=== PATIENT | male | born 1940 | race Caucasian/White ===

== ENCOUNTER 2020-09-17 12:32 | Inpatient (IN) ==
[2020-09-17] MEDS ORDERED: ADENOSINE IV SOLN 3 MG/ML 2 ML VIAL IV ONE (13:08)
[2020-09-17] MEDS ORDERED: dilTIAZem HCl 5 MG/ML 5 ML VIAL IV ONE (13:14)
[2020-09-17] MEDS ORDERED: dilTIAZem HCl 5 MG/ML 5 ML VIAL IV STA (13:20)
[2020-09-17] MEDS ORDERED: STAT IV Infusion **Titration per Protocol STA (13:20)
[2020-09-17] MEDS ORDERED: SODIUM CHLORIDE 0.9% 500 ML IV STA (13:20)
[2020-09-17] MEDS ORDERED: ADENOSINE IV SOLN 3 MG/ML 2 ML VIAL IV STA (13:20)
[2020-09-17] MEDS ORDERED: ASPIRIN CHEW 324 MG PO STA (13:20)
--- NOTE | 2020-09-17 13:29 | Emergency Department Note ---
History of Present Illness General Chief complaint: Tachycardia Stated complaint: HEARTING BEATING TOO FAST,REF BY DOC Time Seen by Provider: 09/17/20 13:01 Source: patient History of Present Illness Provider complaint: Chest pain Onset (ago): week(s) 5 Location: chest Radiation: non-radiation Severity: moderate Pain Consistency: + intermittent Maximum Pain Intensity: 5 Quality: + other (Pressure/bloating) Relieved By: + none Exacerbated By: + other (Exertion) Associated symptoms: + chest pain, + cough (Mild) and + other; no diaphoresis, no fever/chills, no headaches, no nausea/vomiting and no shortness of breath This is an 79-year-old male who presents with chest discomfort for approximately 5 weeks. The patient was seen by his doctor today and sent here for further evaluation due to tachycardia. The patient states that he has intermittently had chest discomfort in the middle of his chest for the past 5 weeks which he de scribes as a pressure or bloating. He states it is associated with shortness of breath. He rates it a 5 out of 10 in severity. He denies any nausea vomiting or diaphoresis. His heart rate was high in his doctor's office so he was sent here for medication. He states that he has not felt his heart racing but when he takes his pulse he has noticed that it has been fast at times. He denies any fever, abdominal pain, vomiting, black or bloody stools, diarrhea, headaches or urinary symptoms. He denies any history of bleeding issues. He states he is on no medications and is not treated for any medical conditions. Home Medications Medication Instructions Recorded Confirmed Type No Known Home Medications 09/17/20 09/17/20 History Allergies Allergy/AdvReac Type Severity Reaction Status Date / Time No Known Drug Allergies Allergy nkda Unverified 09/17/20 14:42 Past Med/Surg History Medical History No significant past medical history Social History Smoking Status: Never smoker Hx Alcohol Use: No Hx Substance Use: No Preferred Language: Indonesian Communication Ability: Effective Substation Engineer Required: No Beliefs That Will Affect Care: Bahai and Cultural Cultural Beliefs: Matheus Current Living Situation: Family Feels Safe at Home: Yes Safety Concerns: Feels Safe At This Time Review of Systems See HPI for pertinent positives & negatives. and A total of 10 systems reviewed and were otherwise negative Physical Exam Vital Signs Vital Signs - 24 hr 09/17/20 12:49 09/17/20 12:56 09/17/20 13:01 Temperature 36.5 C Temperature Source Temporal Artery Scan Pulse Rate 154 H 153 H Pulse Rate from SpO2 Sensor Respiratory Rate 18 27 H Respiratory Effort / Characteristics Short of Breath Blood Pressure 114/74 Blood Pressure Mean 87 Blood Pressure Position Sitting Pulse Oximetry 96 Oxygen Delivery Method Room Air Room Air Sepsis Recent Fever Within 48 Hours No Sepsis New/Unexplained Change in Mental Status N/A Sepsis Action Taken by Nursing No Action Required 09/17/20 13:03 09/17/20 13:05 09/17/20 13:10 Temperature Temperature Source Pulse Rate 153 H 152 H 151 H Pulse Rate from SpO2 Sensor 153 H 152 H 151 H Respiratory Rate 36 H 21 25 H Respiratory Effort / Characteristics Blood Pressure 128/96 123/87 Blood Pressure Mean 106 99 Blood Pressure Position Pulse Oximetry 95 94 95 Oxygen Delivery Method Sepsis Recent Fever Within 48 Hours Sepsis New/Unexplained Change in Mental Status Sepsis Action Taken by Nursing 09/17/20 13:11 09/17/20 13:14 09/17/20 13:15 Temperature Temperature Source Pulse Rate 151 H 150 H 150 H Pulse Rate from SpO2 Sensor 150 H 150 H Respiratory Rate 24 21 29 H Respiratory Effort / Characteristics Blood Pressure 126/89 Blood Pressure Mean 101 Blood Pressure Position Pulse Oximetry 95 96 Oxygen Delivery Method Sepsis Recent Fever Within 48 Hours Sepsis New/Unexplained Change in Mental Status Sepsis Action Taken by Nursing 09/17/20 13:19 09/17/20 13:20 09/17/20 13:25 Temperature Temperature Source Pulse Rate 120 H 114 H 113 H Pulse Rate from SpO2 Sensor 122 H 113 H 114 H Respiratory Rate 28 H 30 H 27 H Respiratory Effort / Characteristics Blood Pressure 113/75 107/69 Blood Pressure Mean 87 81 Blood Pressure Position Pulse Oximetry 92 93 94 Oxygen Delivery Method Sepsis Recent Fever Within 48 Hours Sepsis New/Unexplained Change in Mental Status Sepsis Action Taken by Nursing 09/17/20 13:30 09/17/20 13:34 09/17/20 13:35 Temperature Temperature Source Pulse Rate 114 H 121 H 123 H Pulse Rate from SpO2 Sensor 116 H 110 H 119 H Respiratory Rate 24 22 16 Respiratory Effort / Characteristics Blood Pressure 110/82 Blood Pressure Mean 91 Blood Pressure Position Pulse Oximetry 94 96 95 Oxygen Delivery Method Sepsis Recent Fever Within 48 Hours Sepsis New/Unexplained Change in Mental Status Sepsis Action Taken by Nursing 09/17/20 13:40 09/17/20 13:41 09/17/20 13:45 Temperature Temperature Source Pulse Rate 103 H 114 H 108 H Pulse Rate from SpO2 Sensor 102 H 113 H 62 Respiratory Rate 22 28 H 22 Respiratory Effort / Characteristics Blood Pressure 155/80 H Blood Pressure Mean 105 Blood Pressure Position Pulse Oximetry 94 95 96 Oxygen Delivery Method Sepsis Recent Fever Within 48 Hours Sepsis New/Unexplained Change in Mental Status Sepsis Action Taken by Nursing 09/17/20 13:50 09/17/20 13:51 09/17/20 13:54 Temperature Temperature Source Pulse Rate 102 H 109 H 102 H Pulse Rate from SpO2 Sensor 85 55 L Respiratory Rate 18 27 H 24 Respiratory Effort / Characteristics Blood Pressure 162/81 H 141/81 H Blood Pressure Mean 108 101 Blood Pressure Position Pulse Oximetry 96 97 Oxygen Delivery Method Sepsis Recent Fever Within 48 Hours Sepsis New/Unexplained Change in Mental Status Sepsis Action Taken by Nursing 09/17/20 13:55 09/17/20 13:56 09/17/20 14:00 Temperature Temperature Source Pulse Rate 103 H 103 H 115 H Pulse Rate from SpO2 Sensor 54 L 52 L 72 Respiratory Rate 21 22 23 Respiratory Effort / Characteristics Blood Pressure 141/76 H 137/81 Blood Pressure Mean 97 99 Blood Pressure Position Pulse Oximetry 96 96 97 Oxygen Delivery Method Sepsis Recent Fever Within 48 Hours Sepsis New/Unexplained Change in Mental Status Sepsis Action Taken by Nursing 09/17/20 14:05 09/17/20 14:06 09/17/20 14:10 Temperature Temperature Source Pulse Rate 115 H 114 H 115 H Pulse Rate from SpO2 Sensor 84 65 109 H Respiratory Rate 22 21 19 Respiratory Effort / Characteristics Blood Pressure 136/82 Blood Pressure Mean 100 Blood Pressure Position Pulse Oximetry 96 96 93 Oxygen Delivery Method Sepsis Recent Fever Within 48 Hours Sepsis New/Unexplained Change in Mental Status Sepsis Action Taken by Nursing 09/17/20 14:15 09/17/20 14:16 09/17/20 14:20 Temperature Temperature Source Pulse Rate 115 H 123 H 115 H Pulse Rate from SpO2 Sensor 47 L 104 H 110 H Respiratory Rate 21 23 26 H Respiratory Effort / Characteristics Blood Pressure 152/97 H Blood Pressure Mean 115 Blood Pressure Position Pulse Oximetry 97 96 93 Oxygen Delivery Method Sepsis Recent Fever Within 48 Hours Sepsis New/Unexplained Change in Mental Status Sepsis Action Taken by Nursing 09/17/20 14:25 09/17/20 14:26 09/17/20 14:30 Temperature Temperature Source Pulse Rate 102 H 115 H 103 H Pulse Rate from SpO2 Sensor 59 L 77 67 Respiratory Rate 27 H 25 H 24 Respiratory Effort / Characteristics Blood Pressure 132/79 138/78 Blood Pressure Mean 96 98 Blood Pressure Position Pulse Oximetry 96 95 96 Oxygen Delivery Method Sepsis Recent Fever Within 48 Hours Sepsis New/Unexplained Change in Mental Status Sepsis Action Taken by Nursing 09/17/20 14:31 09/17/20 14:35 09/17/20 14:36 Temperature Temperature Source Pulse Rate 108 H 107 H 108 H Pulse Rate from SpO2 Sensor 62 52 L 61 Respiratory Rate 21 31 H 22 Respiratory Effort / Characteristics Blood Pressure 134/77 Blood Pressure Mean 96 Blood Pressure Position Pulse Oximetry 96 95 97 Oxygen Delivery Method Sepsis Recent Fever Within 48 Hours Sepsis New/Unexplained Change in Mental Status Sepsis Action Taken by Nursing 09/17/20 14:40 09/17/20 14:41 09/17/20 14:45 Temperature Temperature Source Pulse Rate 102 H 106 H 102 H Pulse Rate from SpO2 Sensor 55 L 55 L 51 L Respiratory Rate 23 25 H 26 H Respiratory Effort / Characteristics Blood Pressure 138/77 138/82 Blood Pressure Mean 97 100 Blood Pressure Position Pulse Oximetry 96 97 96 Oxygen Delivery Method Sepsis Recent Fever Within 48 Hours Sepsis New/Unexplained Change in Mental Status Sepsis Action Taken by Nursing 09/17/20 14:46 09/17/20 14:50 09/17/20 14:51 Temperature Temperature Source Pulse Rate 102 H 102 H 102 H Pulse Rate from SpO2 Sensor 51 L 52 L 51 L Respiratory Rate 24 22 22 Respiratory Effort / Characteristics Blood Pressure 142/81 H Blood Pressure Mean 101 Blood Pressure Position Pulse Oximetry 97 98 97 Oxygen Delivery Method Sepsis Recent Fever Within 48 Hours Sepsis New/Unexplained Change in Mental Status Sepsis Action Taken by Nursing 09/17/20 14:55 09/17/20 14:56 09/17/20 15:00 Temperature Temperature Source Pulse Rate 102 H 102 H 102 H Pulse Rate from SpO2 Sensor 52 L 51 L 51 L Respiratory Rate 25 H 20 16 Respiratory Effort / Characteristics Blood Pressure 146/83 H 144/83 H Blood Pressure Mean 104 103 Blood Pressure Position Pulse Oximetry 96 96 98 Oxygen Delivery Method Sepsis Recent Fever Within 48 Hours Sepsis New/Unexplained Change in Mental Status Sepsis Action Taken by Nursing 09/17/20 15:01 09/17/20 15:05 09/17/20 15:06 Temperature Temperature Source Pulse Rate 85 77 93 H Pulse Rate from SpO2 Sensor 68 75 84 Respiratory Rate 22 21 26 H Respiratory Effort / Characteristics Blood Pressure 146/85 H Blood Pressure Mean 105 Blood Pressure Position Pulse Oximetry 97 97 98 Oxygen Delivery Method Sepsis Recent Fever Within 48 Hours Sepsis New/Unexplained Change in Mental Status Sepsis Action Taken by Nursing 09/17/20 15:11 09/17/20 15:15 09/17/20 15:16 Temperature Temperature Source Pulse Rate 113 H 77 88 Pulse Rate from SpO2 Sensor 91 H 79 89 Respiratory Rate 20 24 21 Respiratory Effort / Characteristics Blood Pressure 143/88 H 132/88 Blood Pressure Mean 106 102 Blood Pressure Position Pulse Oximetry 96 96 97 Oxygen Delivery Method Sepsis Recent Fever Within 48 Hours Sepsis New/Unexplained Change in Mental Status Sepsis Action Taken by Nursing 09/17/20 15:20 09/17/20 15:25 09/17/20 15:30 Temperature Temperature Source Pulse Rate 84 101 H 97 H Pulse Rate from SpO2 Sensor 79 104 H 90 Respiratory Rate 22 19 22 Respiratory Effort / Characteristics Blood Pressure 118/80 147/78 H 119/84 Blood Pressure Mean 92 101 95 Blood Pressure Position Pulse Oximetry 98 95 96 Oxygen Delivery Method Sepsis Recent Fever Within 48 Hours Sepsis New/Unexplained Change in Mental Status Sepsis Action Taken by Nursing 09/17/20 15:31 09/17/20 15:35 09/17/20 15:40 Temperature Temperature Source Pulse Rate 102 H 80 84 Pulse Rate from SpO2 Sensor 99 H Respiratory Rate 24 24 21 Respiratory Effort / Characteristics Blood Pressure 123/83 120/86 Blood Pressure Mean 96 97 Blood Pressure Position Pulse Oximetry 94 Oxygen Delivery Method Sepsis Recent Fever Within 48 Hours Sepsis New/Unexplained Change in Mental Status Sepsis Action Taken by Nursing 09/17/20 15:45 09/17/20 15:46 09/17/20 15:50 Temperature Temperature Source Pulse Rate 92 H 77 83 Pulse Rate from SpO2 Sensor 88 Respiratory Rate 24 20 19 Respiratory Effort / Characteristics Blood Pressure 126/85 112/75 Blood Pressure Mean 98 87 Blood Pressure Position Pulse Oximetry 96 Oxygen Delivery Method Sepsis Recent Fever Within 48 Hours Sepsis New/Unexplained Change in Mental Status Sepsis Action Taken by Nursing 09/17/20 15:51 09/17/20 15:55 09/17/20 16:00 Temperature Temperature Source Pulse Rate 77 76 83 Pulse Rate from SpO2 Sensor 78 76 78 Respiratory Rate 24 22 21 Respiratory Effort / Characteristics Blood Pressure 112/78 123/85 Blood Pressure Mean 89 97 Blood Pressure Position Pulse Oximetry 98 97 95 Oxygen Delivery Method Sepsis Recent Fever Within 48 Hours Sepsis New/Unexplained Change in Mental Status Sepsis Action Taken by Nursing 09/17/20 16:01 Temperature Temperature Source Pulse Rate 80 Pulse Rate from SpO2 Sensor 78 Respiratory Rate 20 Respiratory Effort / Characteristics Blood Pressure Blood Pressure Mean Blood Pressure Position Pulse Oximetry 97 Oxygen Delivery Method Sepsis Recent Fever Within 48 Hours Sepsis New/Unexplained Change in Mental Status Sepsis Action Taken by Nursing Constitutional: Vital signs reviewed. Eyes: Pupils are equal round reactive to light. Conjunctiva are noninjected. ENT: Pharynx is clear without erythema or exudate. Mucous membranes are moist. Neck supple without meningeal signs. Respiratory: Clear to auscultation bilaterally. Breath sounds are equal bilaterally. Cardiovascular: Tachycardic. Heart rate 150. GI: Soft, nondistended and nontender. Bowel sounds are present. Musculoskeletal: No peripheral edema. No lower extremity tenderness. Integumentary: No cyanosis. or jaundice. Neurological: The patient is awake and alert. No focal deficits. Psychiatric: Normal affect. Not anxious appearing. Course Administered Medications Diltiazem HCl 125 mg/ Dextrose 125 mls @ 10 mls/hr IV .[id number] [facility]; Protocol Stop: 10/17/20 13:29 Last Titration: 09/17/20 14:30 Dose: 10 mg/hr, 10 mls/hr Documented by: [id number] Cosigned by: [id number] Admin: 09/17/20 13:55 Dose: 5 mg/hr, 5 mls/hr Documented by: [id number] Cosigned by: [id number] Discontinued Medications Adenosine (Adenosine Iv Soln 3 Mg/Ml 2 Ml Vial) Confirm Administered Dose 12 mg IV .STK-MED ONE Stop: 09/17/20 13:09 Last Admin: 09/17/20 13:12 Dose: 6 mg Documented by: [id number] Adenosine (Adenosine Iv Soln 3 Mg/Ml 2 Ml Vial) 6 mg IV NOW STA Stop: 09/17/20 13:21 Last Admin: 09/17/20 13:27 Dose: Not Given Documented by: [id number] Aspirin (Aspirin Chew 324 Mg) 324 mg PO NOW STA Stop: 09/17/20 13:21 Last Admin: 09/17/20 13:43 Dose: 324 mg Documented by: [id number] Diltiazem HCl (Diltiazem Hcl 5 Mg/Ml 5 Ml Vial) Confirm Administered Dose 25 mg IV .STK-MED ONE Stop: 09/17/20 13:15 Last Increment: 09/17/20 13:16 Dose: 10 mg Documented by: [id number] Cosigned by: [id number] Diltiazem HCl (Diltiazem Hcl 5 Mg/Ml 5 Ml Vial) 5 mg IV NOW STA Stop: 09/17/20 13:21 Last Admin: 09/17/20 13:44 Dose: Not Given Documented by: [id number] Sodium Chloride (Nss) 500 mls @ 999 mls/hr IV .Q31M STA Stop: 09/17/20 13:50 Last Infusion: 09/17/20 14:07 Dose: 0 mls/hr Documented by: [id number] Admin: 09/17/20 13:27 Dose: 999 mls/hr Documented by: [id number] Miscellaneous (Stat Iv Infusion Titration Per Protocol) 1 ea N/A NOW STA Stop: 09/17/20 13:21 Last Admin: 09/17/20 13:28 Dose: 1 ea Documented by: [id number] Critical Care Time Critical Care Time: Yes Total Critical Care Time: 40 I have personally spent approximately 40 minutes of critical care time in the direct management of this patient. This includes bedside care, interpretation of diagnostic studies, and testing, discussion with consultants, patient, and family members, and other required patient management activities. These minutes are in excess of all separately billable procedures. Medical Decision Making Differential Diagnosis Supraventricular tachycardia, atrial fibrillation, metabolic derangement, elect rolyte abnormality, unstable angina Medical Records Attestation: I reviewed the patient's medical records. I did perform a limited focused review of portions of the patient's old chart on the electronic medical record. The patient has had no recent pertinent visits to this hospital. Home Medications Current Medication List: was personally reviewed by me Laboratory Data Attestation: I reviewed the patient's lab results. Result diagrams: 09/17/20 13:03 09/17/20 13:03 Lab Results 06/09/21 06/09/21 06/09/21 Range/Units 13:03 13:03 13:54 WBC 7.24 (4.8-10.8) K/uL RBC 4.55 L (4.7-6.1) M/uL Hgb 13.9 L (14.0-18.0) g/dL Hct 41.7 L (42-52) % MCV 91.6 (80-100) fL MCH 30.5 (25-34) pg MCHC 33.3 (32-36) g/dL RDW Std Deviation 49.6 H (36.4-46.3) fL RDW Coeff of Gelacio 14.6 H (11.5-14.5) % Plt Count 223 (130-400) K/uL MPV 10.6 H (7.4-10.4) fL Immature Gran % (Auto) 0.1 % Neut % (Auto) 70.9 % Lymph % (Auto) 18.0 % [place] % (Auto) 8.8 % Eos % (Auto) 2.1 % Baso % (Auto) 0.1 % Neut # (Auto) 5.13 (1.4-6.5) K/uL Lymph # (Auto) 1.30 (1.2-3.4) K/uL [place] # (Auto) 0.64 H (0.11-0.59) K/uL Eos # (Auto) 0.15 (0-0.5) K/uL Baso # (Auto) 0.01 (0-0.2) K/uL Immature Gran # (Auto) 0.01 (0.00-0.02) K/uL Sodium 142 (136-145) mmol/L Potassium 3.8 (3.5-5.1) mmol/L Chloride 110 H (98-107) mmol/L Carbon Dioxide 26 (21-32) mmol/L Anion Gap 6.0 (3-11) BUN 24 H (7-18) mg/dl Creatinine 1.09 (0.6-1.4) mg/dl Est Cr Clr Drug Dosing 55.8 ml/min Est GFR ( Amer) 73.9 ml/min Est GFR (Non-Af Amer) 63.8 ml/min BUN/Creatinine Ratio 22.0 H (10-20) Glucose 142 H (70-99) mg/dl Calcium 8.5 (8.5-10.1) mg/dl Magnesium 2.5 H (1.8-2.4) mg/dl Total Bilirubin 0.7 (0.2-1) mg/dl AST 24 (15-37) U/L ALT 42 (12-78) U/L Alkaline Phosphatase 53 (45-117) U/L Troponin I 0.063 H* (0-0.045) ng/ml Total Protein 6.7 (6.4-8.2) gm/dl Albumin 3.2 L (3.4-5.0) gm/dl Globulin 3.5 (2.5-4.0) gm/dl Albumin/Globulin Ratio 0.9 (0.9-2) TSH 2.090 (0.300-4.500) uIu/ml COVID-19 Eval Order Covid19 at [facility] SARS-CoV-2 (PCR) (Negative) 09/17/20 Range/Units 13:54 WBC (4.8-10.8) K/uL RBC (4.7-6.1) M/uL Hgb (14.0-18.0) g/dL Hct (42-52) % MCV (80-100) fL MCH (25-34) pg MCHC (32-36) g/dL RDW Std Deviation (36.4-46.3) fL RDW Coeff of Gelacio (11.5-14.5) % Plt Count (130-400) K/uL MPV (7.4-10.4) fL Immature Gran % (Auto) % Neut % (Auto) % Lymph % (Auto) % [place] % (Auto) % Eos % (Auto) % Baso % (Auto) % Neut # (Auto) (1.4-6.5) K/uL Lymph # (Auto) (1.2-3.4) K/uL [place] # (Auto) (0.11-0.59) K/uL Eos # (Auto) (0-0.5) K/uL Baso # (Auto) (0-0.2) K/uL Immature Gran # (Auto) (0.00-0.02) K/uL Sodium (136-145) mmol/L Potassium (3.5-5.1) mmol/L Chloride (98-107) mmol/L Carbon Dioxide (21-32) mmol/L Anion Gap (3-11) BUN (7-18) mg/dl Creatinine (0.6-1.4) mg/dl Est Cr Clr Drug Dosing ml/min Est GFR ( Amer) ml/min Est GFR (Non-Af Amer) ml/min BUN/Creatinine Ratio (10-20) Glucose (70-99) mg/dl Calcium (8.5-10.1) mg/dl Magnesium (1.8-2.4) mg/dl Total Bilirubin (0.2-1) mg/dl AST (15-37) U/L ALT (12-78) U/L Alkaline Phosphatase (45-117) U/L Troponin I (0-0.045) ng/ml Total Protein (6.4-8.2) gm/dl Albumin (3.4-5.0) gm/dl Globulin (2.5-4.0) gm/dl Albumin/Globulin Ratio (0.9-2) TSH (0.300-4.500) uIu/ml COVID-19 Eval Order SARS-CoV-2 (PCR) NEGATIVE (Negative) Imaging Data Radiologist's Impression: Chest X-Ray 09/17/20 13:21 XR chest 1V portable HISTORY: 79 years-old Male cp acute atypical chest pain COMPARISON: None TECHNIQUE: Portable AP view of the chest FINDINGS: Cardiac silhouette is enlarged. Small pleural effusions with bibasilar opacities, left greater than right. Pulmonary vascular congestion with interstitial coarsening. No pneumothorax. Bones appear grossly intact with degenerative changes of the shoulders and spine. IMPRESSION: 1. Cardiomegaly with pulmonary edema. 2. Small pleural effusions with left greater than right bibasilar opacities suggestive of atelectasis. Pneumonia considered less likely. ACT 112: Negative or not required by law. The above report was generated using voice recognition software. It may contain grammatical, syntax or spelling errors. Electronically signed by: Davion Tierney M.D. 09/17/2020 2:25 PM ECG Data Attestation: I personally reviewed and interpreted this ECG as follows: Indication: + chest pain, + SOB/dyspnea and + tachycardia Rate (beats per minute): 152 Rhythm: + SVT ECG [place]: + Left axis deviation ECG ST segments: + Nonspecific ST abnormalities ECG Findings: no PVCs MDM Narrative I did evaluate the patient as noted above. The patient has had intermittent chest pain and elevated pulse for the past 5 weeks. He was sent here from his doctor's office because his pulse was elevated. He is currently having chest pressure and shortness of breath. IV access was established. I did place an order for continuous cardiac monitoring. The monitor showed SVT with a rate of 150. I did order and personally review the patient's 12-lead EKG as described above. He has SVT. There is left axis deviation and nonspecific ST changes. I initially attempted vagal maneuvers and carotid massage without any effect. After discussion with the patient and his I did recommend chemical treatment. The crash cart was brought into the room. Pacer pads were placed on the patient. I did treat him with adenosine 6 mg IV. His heart rate came down briefly and clear flutter waves were visible. I then treated the patient with Cardizem 10 mg IV and is heart rate came down to about 120. I did place him on a drip of Cardizem. He was given a bolus of 500 cc normal saline. I did order and personally reviewed the images of the patient's chest x-ray as described above. He has cardiomegaly. I did order and review the patient's blood work as noted in the electronic medical record. His white count is 7.4. Hemoglobin is 13.9. Platelet count is 223. Electrolytes are unremarkable. Troponin is slightly elevated. I did reassess the patient multiple times. He is on a cont inuous Cardizem drip. His heart rate is in the 70s now. He has no chest pain. He will be hospitalized for further care and evaluation. I did discuss case with the hospitalist and comp field case manager. The hospitalist requested I hold off on anticoagulation until he sees the patient. Impression & Plan Atrial fibrillation with rapid ventricular response, Troponin level elevated, New onset atrial fibrillation, Chest pain Discharge Plan Visit Data Chief Complaint: Tachycardia Stated Complaint: HEARTING BEATING TOO FAST,REF BY DOC ED Provider: Mark Andrews Discharge Problem: Atrial fibrillation with rapid ventricular response, Troponin level elevated, New onset atrial fibrillation, Chest pain Patient Disposition: Admitted As Inpatient Discharge Instructions Interventions: ED Discharge Assessment Last Done: 09/17/20 17:37
[2020-09-17 13:42] LABS: Basophils # (auto) 0.01 K/uL (0-0.2); Basophils % (auto) 0.1 %; Eosinophils # (auto) 0.15 K/uL (0-0.5); Eosinophils % (auto) 2.1 %; Hematocrit (blood only) 41.7 % (42-52); Hemoglobin 13.9 g/dL (14.0-18.0); Immature Granulocytes # (auto) 0.01 K/uL (0.00-0.02); Immature Granulocytes % (auto) 0.1 %; Mean Corpuscular Hemoglobin 30.5 pg (25-34); Mean Corpuscular Hgb Conc 33.3 g/dL (32-36); Mean Corpuscular Volume 91.6 fL (80-100); Mean Platelet Volume 10.6 fL (7.4-10.4); Monocytes # (auto) 0.64 K/uL (0.11-0.59); Monocytes % (auto) 8.8 %; Neutrophils # (auto) 5.13 K/uL (1.4-6.5); Neutrophils % (auto) 70.9 %; Platelet Count 223 K/uL (130-400); RDW Coefficient of Variation 14.6 % (11.5-14.5); RDW Standard Deviation 49.6 fL (36.4-46.3); Red Blood Count 4.55 M/uL (4.7-6.1); White Blood Count 7.24 K/uL (4.8-10.8)
[2020-09-17 13:50] LABS: Albumin Level 3.2 gm/dl (3.4-5.0); Calcium 8.5 mg/dl (8.5-10.1); Creatinine Clr Calc Pharmacy 55.8 ml/min; Est GFR (African American) 73.9 ml/min; Est GFR (Non-African American) 63.8 ml/min; Magnesium 2.5 mg/dl (1.8-2.4); Potassium 3.8 mmol/L (3.5-5.1)
[2020-09-17] MEDS: dilTIAZem HCL 125 MG in DEXTROSE 5% 100 ML IV SCH ×2 (13:55→23:29)
[2020-09-17 14:06] LABS: Albumin Globulin Ratio 0.9 (0.9-2); Bilirubin,Total 0.7 mg/dl (0.2-1); Globulin 3.5 gm/dl (2.5-4.0); Thyroid Stimulating Hormone 2.09 uIu/ml (0.300-4.500); Total Protein 6.7 gm/dl (6.4-8.2); Troponin I 0.063 ng/ml (0-0.045)
--- NOTE | 2020-09-17 14:27 | XRay Report ---
XR chest 1V portable HISTORY: 79 years-old Male cp acute atypical chest pain COMPARISON: None TECHNIQUE: Portable AP view of the chest FINDINGS: Cardiac silhouette is enlarged. Small pleural effusions with bibasilar opacities, left greater than r ight. Pulmonary vascular congestion with interstitial coarsening. No pneumothorax. Bones appear gross ly intact with degenerative changes of the shoulders and spine. IMPRESSION: 1. Cardiomegaly with pulmonary edema. 2. Small pleural effusions with left greater than right bibasilar opacities suggestive of atelectasis . Pneumonia considered less likely. ACT 112: Negative or not required by law. The above report was generated using voice recognition software. It may contain grammatical, syntax o r spelling errors. Electronically signed by: Davion Tierney M.D. 09/17/2020 2:25 PM
--- NOTE | 2020-09-17 16:06 | History & Physical Report ---
Date of Service September 17, 2020 Assessment & Plan (1) SVT (supraventricular tachycardia): Patient now back to normal sinus rhythm/sinus tachycardia Will admit to PCU Continue Cardizem drip as ordered Check 2D echo Check TSH Check fasting lipids We will ask cardiology to evaluate for further recommendations (2) Troponin level elevated: Suspect this is secondary to tachycardia, type II cardiac strain We will trend troponins Will give a low-dose aspirin Hold off on full anticoagulation for now History of Present Illness Chief Complaint: Palpitations Primary Care Provider: Ramy Dolan This is an 79-year-old [facility] male who denies past medical history and complaints today of intermittent palpitations. Patient is friendly but a limited historian. Patient states he has been having some chest pain with palpitations intermittently over the past 5 weeks. He does tend to be worse with activity. There is some accompanying mild shortness of breath. He notices that his tolerance for exercise is much decreased and has a worsening dyspnea on exertion. He went to see his primary care physician today and was told that his heart rate was very high and that he should present to the emergency room for further evaluation. In the ER, he was found to have a rate in the 150s, determined to be SVT. He was given adenosine which successfully broke the rhythm. At the time my evaluation, he is in normal sinus rhythm with a rate around 100. He is asymptomatic. He was started on a Cardizem drip by the ER physician. Patient is now being admitted for further evaluation. Allergies Allergy/AdvReac Type Severity Reaction Status Date / Time No Known Drug Allergies Allergy nkda Unverified 09/17/20 14:42 Home Medications Medication Instructions Recorded Confirmed Type No Known Home Medications 09/17/20 09/17/20 History Past Med/Surg History Medical History No significant past medical history Social History Smoking Status: Never smoker Preferred Language: Afghan Feels Safe at Home: Yes Review of Systems Constitutional: + fatigue; no fever, no chills, no weakness, no weight loss and no weight gain Eyes: as per Subjective / HPI Respiratory: no cough, no chest congestion, no dyspnea and no dyspnea on exertion Cardiovascular: + dyspnea on exertion, + palpitations and + edema; no chest pain, no chest pain at rest, no orthopnea and no lightheadedness Gastrointestinal: no abdominal pain, no nausea, no vomiting, no constipation and no diarrhea/loose stools Musculoskeletal: no back pain, no neck pain, no joint pain, no stiffness and no myalgia Integumentary: no rash Neurologic: no gait abnormality, no unsteadiness, no falls and no generalized weakness Physical Exam Constitutional: cooperative and comfortable; no acute distress Neck: trachea midline, no thyromegaly Respiratory: normal respiratory effort Auscultation: lungs clear to auscultation bilaterally; no crackles, no rales, no rhonchi and no wheezes Cardiovascular: Rate/Rhythm: regular rate and regular rhythm Heart Sounds: normal S1 and normal S2; no murmur Extremities: + edema (trace) Gastrointestinal (Abdomen): Inspection/Auscultation: abdomen normal to inspection Percussion/Palpation: abdomen soft; abdomen nontender, no guarding, abdomen not rigid and no hepatosplenomegaly Skin: no rashes, warm and dry Results & Data Results & Data ([facility]) Vital Signs (Past 12 Hours) Vital Signs Temp Pulse Resp BP Pulse Ox 09/17/20 15:50 83 19 112/75 96 09/17/20 15:46 77 20 09/17/20 15:45 92 H 24 126/85 09/17/20 15:40 84 21 120/86 09/17/20 15:35 80 24 123/83 09/17/20 15:31 102 H 24 94 09/17/20 15:30 97 H 22 119/84 96 09/17/20 15:25 101 H 19 147/78 H 95 09/17/20 15:20 84 22 118/80 98 09/17/20 15:16 88 21 97 09/17/20 15:15 77 24 132/88 96 09/17/20 15:11 113 H 20 143/88 H 96 09/17/20 15:06 93 H 26 H 98 09/17/20 15:05 77 21 146/85 H 97 09/17/20 15:01 85 22 97 09/17/20 15:00 102 H 16 144/83 H 98 09/17/20 14:56 102 H 20 96 09/17/20 14:55 102 H 25 H 146/83 H 96 09/17/20 14:51 102 H 22 97 09/17/20 14:50 102 H 22 142/81 H 98 09/17/20 14:46 102 H 24 97 09/17/20 14:45 102 H 26 H 138/82 96 09/17/20 14:41 106 H 25 H 97 09/17/20 14:40 102 H 23 138/77 96 09/17/20 14:36 108 H 22 97 09/17/20 14:35 107 H 31 H 134/77 95 09/17/20 14:31 108 H 21 96 09/17/20 14:30 103 H 24 138/78 96 09/17/20 14:26 115 H 25 H 95 09/17/20 14:25 102 H 27 H 132/79 96 09/17/20 14:20 115 H 26 H 93 09/17/20 14:16 123 H 23 152/97 H 96 09/17/20 14:15 115 H 21 97 09/17/20 14:10 115 H 19 93 09/17/20 14:06 114 H 21 96 09/17/20 14:05 115 H 22 136/82 96 09/17/20 14:00 115 H 23 137/81 97 09/17/20 13:56 103 H 22 96 09/17/20 13:55 103 H 21 141/76 H 96 09/17/20 13:54 102 H 24 141/81 H 97 09/17/20 13:51 109 H 27 H 162/81 H 96 09/17/20 13:50 102 H 18 09/17/20 13:45 108 H 22 96 09/17/20 13:41 114 H 28 H 155/80 H 95 09/17/20 13:40 103 H 22 94 09/17/20 13:35 123 H 16 95 09/17/20 13:34 121 H 22 110/82 96 09/17/20 13:30 114 H 24 94 09/17/20 13:25 113 H 27 H 94 09/17/20 13:20 114 H 30 H 107/69 93 09/17/20 13:19 120 H 28 H 113/75 92 09/17/20 13:15 150 H 29 H 96 09/17/20 13:14 150 H 21 126/89 09/17/20 13:11 151 H 24 95 09/17/20 13:10 151 H 25 H 123/87 95 09/17/20 13:05 152 H 21 94 09/17/20 13:03 153 H 36 H 128/96 95 09/17/20 13:01 153 H 27 H 09/17/20 12:49 36.5 C 154 H 18 114/74 96 Diagnostic Findings XR chest 1V portable HISTORY: 79 years-old Male cp acute atypical chest pain COMPARISON: None TECHNIQUE: Portable AP view of the chest FINDINGS: Cardiac silhouette is enlarged. Small pleural effusions with bibasilar opacities, left greater than right. Pulmonary vascular congestion with interstitial coarsening. No pneumothorax. Bones appear grossly intact with degenerative changes of the shoulders and spine. IMPRESSION: 1. Cardiomegaly with pulmonary edema. 2. Small pleural effusions with left greater than right bibasilar opacities suggestive of atelectasis. Pneumonia considered less likely. PG Care Time/CCT Total # of Minutes Spent Total Time Spent with Patient: Total time spent is greater than 50% in coordination of care (as documented) at patient's floor/unit and/or counseling patient: Coding Level of Care Code 42803 Initial Inpt Care Lvl 3 Diagnoses SVT (supraventricular tachycardia) I47.1 Troponin level elevated R77.8
[2020-09-17] MEDS ORDERED: ACETAMINOPHEN 325 MG TAB PO PRN (18:31)
[2020-09-17] MEDS ORDERED: ONDANSETRON INJ 2 MG/ML 2 ML VIAL IV PRN (18:31)
[2020-09-17] MEDS ORDERED: NITROGLYCERIN SL 0.4 MG/TAB TAB ONE (20:47)
[2020-09-17] MEDS ORDERED: MoRPHine SULFATE 2 MG/ML CARP IV PRN (20:54)
[2020-09-17] MEDS ORDERED: NITROGLYCERIN SL 0.4 MG/TAB TAB SL PRN (20:54)
[2020-09-17] MEDS ORDERED: NITROGLYCERIN 2% OINTMENT 30GM TUBE EXT PRN (20:54)
--- NOTE | 2020-09-17 20:57 | Communication Note ---
Date of Service: September 17, 2020 Called by bedside nursing for concerns of acute substernal chest pain. Relieved by nitroglycerin. Patient was already admitted for concerns for SVT with ta chycardia up to 170s status post adenosine. Currently on Cardizem drip. On review of EKGs patient had subsequently gone into atrial flutter with no acute demonstrations of ST segment changes or T wave inversions. BMP at that time greater than 3000, however initial concern was that this was probably secondary to recent tachycardia and should resolve. Despite this patient subsequently developed worsening pulmonary crackles over the bilateral lower lobes repeat chest x-ray seemingly demonstrating increased pulmonary edema. 40 mg of IV Lasix was given. Repeat troponins rising overnight. Given this concern and tachycardia with signs of atrial flutter concern initiated heparin drip. Continue to monitor overnight on telemetry. Resident Activity Tracking Resident Involvement: Resident Care Provided Care Provided: Adult Hospital Medicine
[2020-09-18] MEDS ORDERED: FUROSEMIDE 40 MG in SYRINGE 0 ML IV ONE ×2 (01:00→15:00)
[2020-09-18] MEDS ORDERED: Heparin IV Adult Wt-Based Standard *NO* Bolus Protocol IV SCH (01:30)
[2020-09-18] MEDS: HEPARIN SODIUM/DEXTROSE 25,000 UNITS/500 ML BAG IV SCH ×2 (01:56→18:59)
[2020-09-18 01:58] LABS: Partial Thromboplastin Ratio 0.9; Partial Thromboplastin Time 24.6 Seconds (21.0-31.0); Prothrombin Time 10.5 Seconds (9.0-12.0)
--- NOTE | 2020-09-18 06:43 | XRay Report ---
XR chest 1V portable CLINICAL HISTORY: chest tightness COMPARISON STUDY: Chest radiograph September 17, 2020. FINDINGS: There is no pneumothorax. Small bilateral pleural effusions and bibasilar opacities are not ed. Right basilar opacity slightly increased. Pulmonary edema persists. Cardiomegaly is again noted. IMPRESSION: Persistent pulmonary edema, small bilateral pleural effusions and bibasilar opacities. ACT 112: Negative or not required by law. Electronically signed by: Ricco Elias M.D. 09/18/2020 6:41 AM
[2020-09-18 06:59] LABS: Basophils # (auto) 0.02 K/uL (0-0.2); Basophils % (auto) 0.2 %; Eosinophils # (auto) 0.09 K/uL (0-0.5); Eosinophils % (auto) 0.9 %; Hematocrit (blood only) 44.7 % (42-52); Hemoglobin 14.7 g/dL (14.0-18.0); Immature Granulocytes # (auto) 0.02 K/uL (0.00-0.02); Immature Granulocytes % (auto) 0.2 %; Lymphocytes # (auto) 1.12 K/uL (1.2-3.4); Lymphocytes % (auto) 11.2 %; Mean Corpuscular Hemoglobin 30.3 pg (25-34); Mean Corpuscular Hgb Conc 32.9 g/dL (32-36); Mean Corpuscular Volume 92.2 fL (80-100); Mean Platelet Volume 10.8 fL (7.4-10.4); Monocytes # (auto) 1.14 K/uL (0.11-0.59); Monocytes % (auto) 11.4 %; Neutrophils # (auto) 7.63 K/uL (1.4-6.5); Neutrophils % (auto) 76.1 %; Platelet Count 240 K/uL (130-400); RDW Coefficient of Variation 14.6 % (11.5-14.5); RDW Standard Deviation 49.5 fL (36.4-46.3); Red Blood Count 4.85 M/uL (4.7-6.1); White Blood Count 10.02 K/uL (4.8-10.8)
[2020-09-18 07:33] LABS: BUN Creatinine Ratio 21.2 (10-20); Calcium 8.5 mg/dl (8.5-10.1); Creatinine Clr Calc Pharmacy 53.8 ml/min; Est GFR (African American) 70.8 ml/min; Est GFR (Non-African American) 61.1 ml/min; Magnesium 2.2 mg/dl (1.8-2.4); Potassium 3.7 mmol/L (3.5-5.1)
[2020-09-18] MEDS: dilTIAZem HCL 125 MG in DEXTROSE 5% 100 ML IV SCH ×2 (08:59→18:59)
[2020-09-18] MEDS ORDERED: ASPIRIN 81 MG ECTAB PO SCH (09:00)
[2020-09-18 09:13] LABS: Partial Thromboplastin Time 52.6 Seconds (21.0-31.0)
--- NOTE | 2020-09-18 10:06 | XCELERA ---
[id number]
--- NOTE | 2020-09-18 13:03 | Cardiology Consultation ---
Date of Consultation September 18, 2020 Assessment & Plan (1) Non-ST elevation (NSTEMI) myocardial infarction: (2) Acute systolic (congestive) heart failure: (3) Cardiomyopathy: (4) Atrial flutter: (5) Hypertension: (6) Apical mural thrombus: ASSESSMENT/PLAN: 1. NSTEMI: Troponins are trending upward. No further angina. Recommend cardiac catheterization. Risks and benefits were discussed with him in detail. He was agreeable to undergo diagnostic coronary angiography and PCI, if deemed appropriate. Continue aspirin. Start high-intensity statin therapy. Start beta-payton. 2. Acute systolic CHF: Significantly reduced LV systolic function. Appears hypervolemic and improved after diuretic. Another dose of Lasix 40 mg IV today. Low-sodium diet. Strict I's and o's. Daily weights. Heart failure program if agreeable. 3. Cardiomyopathy: Significantly reduced LV systolic function. Concerning for ischemic heart disease given anginal symptoms and rising troponin. Atrial flutter with rapid ventricular response could also be playing a role or responsible for his reduced function. Atrial flutter now better controlled. Recommend metoprolol succinate on discharge but for now will start metoprolol tartrate 25 mg twice daily in hopes of weaning off the diltiazem, especially in the setting of systolic CHF. Consider Entresto however cost is an issue for him. Start lisinopril during this hospitalization if no contraindication. 4. Atrial flutter: New diagnosis for him but he describes irregular heartbeats in the past. Currently asymptomatic. Heart rate controlled on diltiazem IV. Replace diltiazem with oral metoprolol and monitor heart rate closely. On he mel for stroke risk reduction. Recommend oral anticoagulation therapy on discharge. 5. Apical LV thrombus: Discussed the diagnosis. Continue anticoagulation therapy. 6. Hypertension: Carries a history of hypertension. While here, his blood pressure has been mostly normotensive with occasional mild hypertension. Adjusting medical therapy as above for his multiple cardiac issues. 7. Dyslipidemia: If he is found to have CAD on cardiac catheterization, his LDL is not optimized. Start high-intensity statin therapy as above. 8. Disposition: Cardiology will continue to follow. Patient care communicated with Dr. Flores, primary hospitalist. Highly complex medical issues. Thank you for allowing me to participate in the care of your patient. Please call for any other questions or concerns. Sincerely, Geoffrey Power M.D. Addendum: Cardiac catheterization demonstrated severe CAD involving LM CA, ostial LAD, and OM1. Recommended transfer to CT surgery capable facility. After discussing with patient, his , and daughter (Joslyn), the decision was made by patient/family to be transferred to [facility]. Dr. Camp of Cardiology at [facility] was contacted and he has accepted Mr. Michel in transfer for further cardiology care and CT surgery evaluation. This was communicated Dr. Flores of the primary hospitalist service who then helped arrange transfer. Family was updated. History of Present Illness Reason for Consultation: "SVT" Requesting Physician: Dr. Mcwilliams Attending Physician: Kun Flores, DO History of Present Illness Mr. Michel is a pleasant 79-year-old gentleman with a history significant for hypertension who was admitted on 09/17/2020 with chest pain, shortness of breath, and palpitations. Around Easter time, in July 2020, he noticed increased fatigue, decreased exercise tolerance, and dyspnea with exertion. Symptoms have progressed over time. Over the past few days he has had substernal chest discomfort described as simply discomfort that does not radiate. It has been on exertion and tends to resolve with rest. There is also accompanied shortness of breath. He has been noting worsening shortness of breath with any activity and also more recently paroxysmal nocturnal dyspnea and orthopnea for the past 3 or 4 days he has noted lower extremity edema. The symptoms are all new for him over the past several weeks. He came to the emergency department and was found to be in a tachyarrhythmia near 150 beats per minute. According to the emergency department notes, he received adenosine, which allowed for visualization of atrial flutter waves. He was then placed on diltiazem drip and his heart rate has been much better controlled. He feels better today than he did on admission. He continues to use supplemental oxygen. He currently is not experiencing any chest discomfort, shortness of breath while on supplemental oxygen, or palpitations. He denies melena, hematochezia, hematuria, or any other bleeding. He is physically active and continues to work. He admits that he has had irregular heartbeat for quite some time, even years. He remembers going to donate blood in the past and was turned away at times for irregular heartbeat. He states that he sees a PCP once per year. He was on an antihypertensive agent in the past but decided to discontinue it as his blood pressure had improved. He denies a history of dyslipidemia or diabetes. On presentation, his troponin was 0.063 and has since trended up to 5.72. He was placed on heparin drip by hospitalist service. Review of systems: As above. Review of systems otherwise negative/unremarkable. Family history: Father and brother had CAD and underwent CABG. Father also underwent valve replacement. Social history: He denies tobacco, alcohol, or drug abuse. He is on mesh and lives at home with his and 1 child. He has 8 children total. They do not have a phone at home but uses a voice mail service. He was unaccompanied at the time of our visit today. Allergies Allergy/AdvReac Type Severity Reaction Status Date / Time No Known Drug Allergies Allergy nkda Unverified 09/17/20 14:42 Home Medications Medication Instructions Recorded Confirmed Type No Known Home Medications 09/17/20 09/17/20 History Patient History Medical History Hypertension Social History Smoking Status: Never smoker Hx Alcohol Use: No Hx Substance Use: No Preferred Language: Icelandic Communication Ability: Effective Botanical Technical Officer Required: No Beliefs That Will Affect Care: Mormonism and Cultural Cultural Beliefs: [facility] marital status: Current Living Situation: Family Feels Safe at Home: Yes Assistive Devices: Oxygen - Continuous Physical Exam Physical Exam: Gen.: No acute distress. Alert and oriented. HEENT: Anicteric sclera. Neck: Mild JVD. Hepatic jugular reflux noted. Normal carotid upstrokes bilaterally. Cardiac: PMI was nondisplaced. No ventricular heave. Irregularly irregular with normal rate. Normal S1-S2. No murmurs, rubs, or gallops. Pulmonary: Decreased breath sounds at the bases with occasional rales. Abdomen: Soft, nontender, nondistended, with normoactive bowel sounds. No bruits noted. Extremities: 2+ radial pulses bilaterally. 2+ posterior tibialis pulses bilaterally. Trace to 1+ bilateral pedal edema. No cyanosis. Psychiatric: Affect appears appropriate. Results & Data ([facility]) Vital Signs (Past 12 Hours) Vital Signs Temp Pulse Pulse Resp BP BP Pulse Ox 09/18/20 12:15 36.3 C L 69 19 111/67 96 09/18/20 08:09 36.5 C 51 L 21 146/71 H 90 09/18/20 08:00 78 09/18/20 03:20 36.5 C 84 16 158/81 H 93 Intake & Output 09/16/20 09/17/20 09/18/20 09/19/20 06:59 06:59 06:59 06:59 Intake Total 911.417 / 911.417 336.867 / 336.867 Output Total 2049 / 2049 250 / 250 Balance -1138.583 / -1138.583 86.867 / 86.867 Weight 183 lb 10.321 oz Laboratory Results Laboratory Results - last 24 hr 09/17/20 09/17/20 09/17/20 13:03 13:03 13:54 WBC 7.24 RBC 4.55 L Hgb 13.9 L Hct 41.7 L MCV 91.6 MCH 30.5 MCHC 33.3 RDW Std Deviation 49.6 H RDW Coeff of Gelacio 14.6 H Plt Count 223 MPV 10.6 H Immature Gran % (Auto) 0.1 Neut % (Auto) 70.9 Lymph % (Auto) 18.0 [place] % (Auto) 8.8 Eos % (Auto) 2.1 Baso % (Auto) 0.1 Neut # (Auto) 5.13 Lymph # (Auto) 1.30 [place] # (Auto) 0.64 H Eos # (Auto) 0.15 Baso # (Auto) 0.01 Immature Gran # (Auto) 0.01 PT INR APTT PTT Ratio Sodium 142 Potassium 3.8 Chloride 110 H Carbon Dioxide 26 Anion Gap 6.0 BUN 24 H Creatinine 1.09 Est Cr Clr Drug Dosing 55.8 Est GFR ( Amer) 73.9 Est GFR (Non-Af Amer) 63.8 BUN/Creatinine Ratio 22.0 H Glucose 142 H Calcium 8.5 Magnesium 2.5 H Total Bilirubin 0.7 AST 24 ALT 42 Alkaline Phosphatase 53 Troponin I 0.063 H* NT-Pro-B Natriuret Pep Total Protein 6.7 Albumin 3.2 L Globulin 3.5 Albumin/Globulin Ratio 0.9 Triglycerides Cholesterol LDL Cholesterol, Calc VLDL Cholesterol, Calc HDL Cholesterol Cholesterol/HDL Ratio TSH 2.090 COVID-19 Eval Order Covid19 at [facility] SARS-CoV-2 (PCR) 09/17/20 09/17/20 09/17/20 13:54 19:08 19:08 WBC RBC Hgb Hct MCV MCH MCHC RDW Std Deviation RDW Coeff of Gelacio Plt Count MPV Immature Gran % (Auto) Neut % (Auto) Lymph % (Auto) [place] % (Auto) Eos % (Auto) Baso % (Auto) Neut # (Auto) Lymph # (Auto) [place] # (Auto) Eos # (Auto) Baso # (Auto) Immature Gran # (Auto) PT INR APTT PTT Ratio Sodium Potassium Chloride Carbon Dioxide Anion Gap BUN Creatinine Est Cr Clr Drug Dosing Est GFR ( Amer) Est GFR (Non-Af Amer) BUN/Creatinine Ratio Glucose Calcium Magnesium Total Bilirubin AST ALT Alkaline Phosphatase Troponin I 0.588 H* NT-Pro-B Natriuret Pep 3319 H Total Protein Albumin Globulin Albumin/Globulin Ratio Triglycerides Cholesterol LDL Cholesterol, Calc VLDL Cholesterol, Calc HDL Cholesterol Cholesterol/HDL Ratio TSH COVID-19 Eval Order SARS-CoV-2 (PCR) NEGATIVE 09/18/20 09/18/20 09/18/20 00:12 01:33 06:35 WBC 10.02 RBC 4.85 Hgb 14.7 Hct 44.7 MCV 92.2 MCH 30.3 MCHC 32.9 RDW Std Deviation 49.5 H RDW Coeff of Gelacio 14.6 H Plt Count 240 MPV 10.8 H Immature Gran % (Auto) 0.2 Neut % (Auto) 76.1 Lymph % (Auto) 11.2 [place] % (Auto) 11.4 Eos % (Auto) 0.9 Baso % (Auto) 0.2 Neut # (Auto) 7.63 H Lymph # (Auto) 1.12 L [place] # (Auto) 1.14 H Eos # (Auto) 0.09 Baso # (Auto) 0.02 Immature Gran # (Auto) 0.02 PT 10.5 INR 1.0 APTT 24.6 PTT Ratio 0.9 Sodium Potassium Chloride Carbon Dioxide Anion Gap BUN Creatinine Est Cr Clr Drug Dosing Est GFR ( Amer) Est GFR (Non-Af Amer) BUN/Creatinine Ratio Glucose Calcium Magnesium Total Bilirubin AST ALT Alkaline Phosphatase Troponin I 2.840 H* NT-Pro-B Natriuret Pep Total Protein Albumin Globulin Albumin/Globulin Ratio Triglycerides Cholesterol LDL Cholesterol, Calc VLDL Cholesterol, Calc HDL Cholesterol Cholesterol/HDL Ratio TSH COVID-19 Eval Order SARS-CoV-2 (PCR) 09/18/20 09/18/20 09/18/20 06:35 06:35 07:54 WBC RBC Hgb Hct MCV MCH MCHC RDW Std Deviation RDW Coeff of Gelacio Plt Count MPV Immature Gran % (Auto) Neut % (Auto) Lymph % (Auto) [place] % (Auto) Eos % (Auto) Baso % (Auto) Neut # (Auto) Lymph # (Auto) [place] # (Auto) Eos # (Auto) Baso # (Auto) Immature Gran # (Auto) PT INR APTT 52.6 H* PTT Ratio 2.0 Sodium 140 Potassium 3.7 Chloride 107 Carbon Dioxide 26 Anion Gap 7.0 BUN 24 H Creatinine 1.13 Est Cr Clr Drug Dosing 53.8 Est GFR ( Amer) 70.8 Est GFR (Non-Af Amer) 61.1 BUN/Creatinine Ratio 21.2 H Glucose 126 H Calcium 8.5 Magnesium 2.2 Total Bilirubin AST ALT Alkaline Phosphatase Troponin I 5.720 H* NT-Pro-B Natriuret Pep Total Protein Albumin Globulin Albumin/Globulin Ratio Triglycerides 81 Cholesterol 193 LDL Cholesterol, Calc 131 VLDL Cholesterol, Calc 16 HDL Cholesterol 46 Cholesterol/HDL Ratio 4 TSH COVID-19 Eval Order SARS-CoV-2 (PCR) Diagnostic Findings Telemetry personally reviewed: Atrial flutter with controlled rate while on diltiazem 15 milligrams/hour. ECG personally reviewed. ECG 09/18/2020 at 5:46 a.m.: Atrial flutter with variable AV block at 79 beats per minute. Poor R-wave progression. Anterolateral T-wave inversion. ECG 09/17/2020 at 12:56 p.m.: Possible atrial flutter versus SVT at 152 beats per minute. Lateral T-wave inversion. ECG 09/18/2020 at 1:08 a.m.: Atrial flutter 86 beats per minute. Poor R-wave progression. Anterolateral T-wave inversion. Echo 09/18/2020: Top-normal LV size with moderately to severely reduced systolic function. EF 30-35%. Global hypokinesis. Moderate LVH. Large mobile apical thrombus. Mild MR. RVSP 40. Chest x-ray 09/17/2020 at 11:52 p.m.: Persistent pulmonary edema per Radiology with small bilateral pleural effusions and bibasilar opacities. Chest x-ray personally reviewed. Increased vascular markings concerning for CHF. Medications Administered Current Inpatient Medications Acetaminophen (Acetaminophen 325 Mg Tab) 650 mg PO Q4H PRN PRN Reason: Pain or Fever Stop: 10/17/20 18:30 Aspirin (Aspirin 81 Mg Ectab) 81 mg PO DAILY MONCHO Stop: 10/18/20 08:59 Last Admin: 09/18/20 09:00 Dose: 81 mg Documented by: Diltiazem HCl 125 mg/ Dextrose 125 mls @ 15 mls/hr IV .[id number] [facility]; Protocol Stop: 10/17/20 13:29 Last Admin: 09/18/20 08:59 Dose: 15 mg/hr, 15 mls/hr Documented by: Heparin Sodium/Dextrose (Heparin Sodium/Dextrose) 25,000 units in 500 mls @ 28 mls/hr IV .[id number] [facility]; Protocol Stop: 10/18/20 01:36 Last Titration: 09/18/20 09:30 Dose: 1,400 units/hr, 28 mls/hr Documented by: Morphine Sulfate (Morphine Sulfate 2 Mg/Ml Carp) 2 mg IV Q30M PRN PRN Reason: Chest Pain Stop: 10/01/20 20:53 Nitroglycerin (Nitroglycerin Sl 0.4 Mg/Tab Tab) 0.4 mg SL UD PRN PRN Reason: Chest Pain Stop: 10/17/20 20:53 Nitroglycerin (Nitroglycerin 2% Ointment 30gm Tube) 1 inch EXT Q6 PRN PRN Reason: Chest pain Stop: 10/18/20 00:00 Ondansetron HCl (Ondansetron Inj 2 Mg/Ml 2 Ml Vial) 4 mg IV Q6H PRN PRN Reason: Nausea Stop: 10/17/20 18:30 PG Care Time/CCT Total # of Minutes Spent Total Time Spent with Patient: Total time spent is greater than 50% in coordination of care (as documented) at patient's floor/unit and/or counseling patient: Coding Level of Care Code 80960 Initial Inpt Care Lvl 3 Diagnoses Non-ST elevation (NSTEMI) myocardial infarction I21.4 Acute systolic (congestive) heart failure I50.21 Cardiomyopathy I42.9 Atrial flutter I48.92 Hypertension I10 Apical mural thrombus I51.3
[2020-09-18] MEDS ORDERED: METOPROLOL TARTRATE 25 MG TAB PO ONE (13:05)
[2020-09-18] MEDS ORDERED: HEPARIN (PORCINE) 1000 UNIT/ML 10 ML (CATH LAB USE ONLY) ONE (14:52)
[2020-09-18] MEDS ORDERED: niCARdipine HCL INJ 2.5 MG/ML 10 ML AMP ONE (14:53)
[2020-09-18] MEDS ORDERED: NITROGLYCERIN/D5W 100MCG/ML 20ML SYR ONE (14:53)
[2020-09-18] MEDS ORDERED: fentaNYL citrate 100 MCG/2 ML VIAL ONE (14:53)
[2020-09-18] MEDS ORDERED: MIDAZOLAM HCL 1 MG/ML 2ML VIAL ONE (14:53)
--- NOTE | 2020-09-18 15:01 | Communication Note ---
Date of Service: September 18, 2020 This patient was seen in concert with Dr. Power and we discussed and agreed upon the history, physical, assessment, and plan. See attending's note for details. Resident Activity Tracking Resident Involvement: Resident Care Provided Care Provided: [facility] Medicine
--- NOTE | 2020-09-18 15:02 | Pre Anesthesia Assessment ---
Date of Service September 18, 2020 Pre Sedation Assessment Vital Signs Temp Pulse Pulse Resp BP BP BP 09/18/20 12:15 36.3 C L 69 19 111/67 09/18/20 08:09 36.5 C 51 L 21 146/71 H 09/18/20 08:00 78 09/18/20 03:20 36.5 C 84 16 158/81 H 09/17/20 23:30 36.3 C L 78 18 131/75 09/17/20 20:59 71 20 112/64 09/17/20 20:51 76 20 133/73 09/17/20 18:39 36.3 C L 18 133/56 L 09/17/20 18:01 91 H 22 09/17/20 18:00 91 H 21 09/17/20 17:46 75 13 09/17/20 17:45 69 18 123/77 09/17/20 17:31 79 19 09/17/20 17:30 92 H 26 H 113/77 09/17/20 17:15 91 H 21 145/80 H 09/17/20 17:01 95 H 25 H 09/17/20 17:00 98 H 28 H 123/87 09/17/20 16:45 75 21 119/84 09/17/20 16:31 76 26 H 09/17/20 16:30 83 27 H 120/83 09/17/20 16:15 91 H 27 H 127/84 09/17/20 16:09 76 29 H 112/82 09/17/20 16:01 80 20 09/17/20 16:00 83 21 123/85 09/17/20 15:55 76 22 112/78 09/17/20 15:51 77 24 09/17/20 15:50 83 19 112/75 09/17/20 15:46 77 20 09/17/20 15:45 92 H 24 126/85 09/17/20 15:40 84 21 120/86 09/17/20 15:35 80 24 123/83 09/17/20 15:31 102 H 24 09/17/20 15:30 97 H 22 119/84 09/17/20 15:25 101 H 19 147/78 H 09/17/20 15:20 84 22 118/80 09/17/20 15:16 88 21 09/17/20 15:15 77 24 132/88 09/17/20 15:11 113 H 20 143/88 H 09/17/20 15:06 93 H 26 H 09/17/20 15:05 77 21 146/85 H Pulse Ox 09/18/20 12:15 96 09/18/20 08:09 90 09/18/20 08:00 09/18/20 03:20 93 09/17/20 23:30 93 09/17/20 20:59 94 09/17/20 20:51 94 09/17/20 18:39 94 09/17/20 18:01 95 09/17/20 18:00 93 09/17/20 17:46 09/17/20 17:45 09/17/20 17:31 09/17/20 17:30 09/17/20 17:15 09/17/20 17:01 96 09/17/20 17:00 95 09/17/20 16:45 97 09/17/20 16:31 97 09/17/20 16:30 97 09/17/20 16:15 97 09/17/20 16:09 98 09/17/20 16:01 97 09/17/20 16:00 95 09/17/20 15:55 97 09/17/20 15:51 98 09/17/20 15:50 96 09/17/20 15:46 09/17/20 15:45 09/17/20 15:40 09/17/20 15:35 09/17/20 15:31 94 09/17/20 15:30 96 09/17/20 15:25 95 09/17/20 15:20 98 09/17/20 15:16 97 09/17/20 15:15 96 09/17/20 15:11 96 09/17/20 15:06 98 09/17/20 15:05 97 Cardiovascular + irregularly irregular Respiratory + respiratory effort normal Pre-Sedation Airway Assessment Smoking Status: Never smoker Short, Thick Neck: No Thyromental Distance: > or= 3.5 Finger Breadths Oral Cavity: + WNL Mallampati Class: III ASA: ASA3 NPO Status Date of Last Intake of Fluids: 09/18/20 Time of Last Intake of Fluids: 08:00 Date of Last Intake of Solid Food: 09/18/20 Time of Last Intake of Solid Foods: 08:00 Procedure Planning Contraindications for Sedation: none Current Medications Reviewed: Yes Notes The planned sedation has been discussed with the patient. Informed Consent was obtained. I have identified the patient, determined the appropriateness of sedation and have assessed the patient immediately prior to the procedure. All medicine(s) and interventions are by my order.
--- NOTE | 2020-09-18 15:35 | Cardiac Catheterization ---
[facility] Data: Audiology Director Cardiac Status Clinical evaluation leading to the procedure CAD Presenation: Non STEMI Anginal Classification: CCS III Heart Failure: NYHA Class: CCS IV Cardiogenic Shock within 24 Hours: No Cardiac Arrest within 24 Hours: No Imaging Studies Past 6 Months: Yes Stress Studies Past 6 Months: No Coronary Anatomy Dominant: Co-Dominant Left Ventricular Angiography EF (%): n/a Diagnostic Physicians Name: Curt Power MD Status: Elective Closure Device Percutaneous Entry Location: Radial Closure Device: Radial Band Recommendations: CABG Cardiac Cath Procedure Full Procedure Date September 18, 2020 Pre-Procedure Diagnosis Pre-Procedure Diagnosis: Non STEMI, CHF and Cardiomyopathy AUC Score AUC Score: 9 Post-Procedure Diagnosis Post-Procedure Diagnosis: Severe CAD Procedure(s) Performed Procedure(s) Performed: Coronary Angiography Right Of Way Appraiser Curt Power MD Printed Circuit Board Assembler(s) Aubrey Estimated Blood Loss Estimated Blood Loss: < 25 ml Medication(s) Medication(s): Fentanyl, Heparin, Lidocaine 1%, Nicardipine and Versed Summary of Findings Procedures: 1. Coronary angiography 2. Moderate sedation Indication: Mr. Michel is an 79-year-old gentleman who presented with anginal symptoms, elevated troponin diagnostic of MA, acute systolic CHF, newly diagnosed cardiomyopathy, left ventricular apical thrombus, and atrial flutter with rapid ventricular response. Coronary angiography: 1. Left main coronary artery: Large caliber vessel. 70 to 80% stenosis ostially and also extending into the ostial LAD. FREDERICK-3 flow through left main. 2. Left anterior descending: Large caliber vessel that wraps around the apex. Ostial LAD 70 to 80%. Mid LAD 20 to 30%. Distal LAD 30%. High/early D1 medium in caliber. Medium to large caliber D2. Small caliber D3. 3. Circumflex: Very large caliber. Codominant. Large caliber OM1 proximal 80% and mid 40% stenosis. Circumflex PL and PDA without significant CAD. 4. Right coronary artery: Medium to large in caliber. Codominant. No significant CAD within the RCA or RCA PDA. Moderate sedation: 1. Sedation start time: 3:06 PM 2. Sedation end time: 3:24 PM Procedural notes: 1. After receiving 1 of Versed and 25 mcg of fentanyl IV, prior to sheath placement, he was noted to be somnolent and confused. He was arousable to verbal stimuli however. 2. Procedure was completed via the right radial artery without known complication. 3. There was no attempt to cross the aortic valve due to large mobile apical thrombus. Impression: 1. Severe CAD involving LMCA, ostial LAD, and large OM1. 2. Codominant system. Plan: 1. Recommend evaluation at [place] [facility] for consideration of CABG. 2. Continue to optimize medical therapy. 3. Continue anticoagulation therapy given atrial flutter and large, mobile apical thrombus. Hemodynamics Rest Ao:: 104/61 Final Ao: 117/60 LV: n/a Recommendations Recommendations: CABG Specimens Specimens: None Radiation Exposure (mGy) 685 mGy. Fluoro time 1.8 min. Contrast (mls) 50 Procedural Complication(s) None Disposition PCU I attest to the content of the Intraoperative Record and any orders documented therein. Any exceptions are noted below. [facility] Card Cath Procedure Codes Cardiac Catheterization Procedure 1: Cardiovascular Cath Procedures: 61731 Coronaries Moderate Sedation Procedure 1: Sedation/Anesthesia: 81194 Mod Sedation by the same physician;Init15 Min Child Age 5 & Up Procedure 2: Sedation/Anesthesia: 68674 Mod Sedation by the same physician; Ea [id number] Minutes PG Care Time/CCT Total # of Minutes Spent Total Time Spent with Patient: Total time spent is greater than 50% in coordination of care (as documented) at patient's floor/unit and/or counseling patient:
--- NOTE | 2020-09-18 16:07 | Post Anesthesia Assessment ---
Date of Service September 18, 2020 Post Sedation Assessment Vital Signs Temp Pulse Pulse Resp BP BP BP 09/18/20 15:41 69 09/18/20 12:15 36.3 C L 69 19 111/67 09/18/20 08:09 36.5 C 51 L 21 146/71 H 09/18/20 08:00 78 09/18/20 03:20 36.5 C 84 16 158/81 H 09/17/20 23:30 36.3 C L 78 18 131/75 09/17/20 20:59 71 20 112/64 09/17/20 20:51 76 20 133/73 09/17/20 18:39 36.3 C L 18 133/56 L 09/17/20 18:01 91 H 22 09/17/20 18:00 91 H 21 09/17/20 17:46 75 13 09/17/20 17:45 69 18 123/77 09/17/20 17:31 79 19 09/17/20 17:30 92 H 26 H 113/77 09/17/20 17:15 91 H 21 145/80 H 09/17/20 17:01 95 H 25 H 09/17/20 17:00 98 H 28 H 123/87 09/17/20 16:45 75 21 119/84 09/17/20 16:31 76 26 H 09/17/20 16:30 83 27 H 120/83 09/17/20 16:15 91 H 27 H 127/84 09/17/20 16:09 76 29 H 112/82 Pulse Ox 09/18/20 15:41 09/18/20 12:15 96 09/18/20 08:09 90 09/18/20 08:00 09/18/20 03:20 93 09/17/20 23:30 93 09/17/20 20:59 94 09/17/20 20:51 94 09/17/20 18:39 94 09/17/20 18:01 95 09/17/20 18:00 93 09/17/20 17:46 09/17/20 17:45 09/17/20 17:31 09/17/20 17:30 09/17/20 17:15 09/17/20 17:01 96 09/17/20 17:00 95 09/17/20 16:45 97 09/17/20 16:31 97 09/17/20 16:30 97 09/17/20 16:15 97 09/17/20 16:09 98 Recovery Score Activity: Moves 4 extremities Respiration: Deep Breath/Cough Circulation: +/-20% PreAnes Value Consciousness: Fully Awake Oxygen Saturation: > 92% On Room Air Post Anesthesia Score: 10 Discharge Sedation Level of Care: Fast Track Phase II Post Sedation Plan On clinical assessment, the patient appears to have tolerated the sedation without complications. Patient is recovering as anticipated. Patient will continue to be monitored by nursing and may be discharged when sedation discharge criteria are met per below protocol. Upon Completions of procedure up to 15 minutes continue every 5 minute vital signs and the P.A.R. score; then discharge to a Phase I or Fast Track to Phase I I per the following guidelines: * Discharge Patient to appropriate Phase II area if PAR is 8 or greater or return to pre- procedure baseline. The post - procedure orders will be as directed. * If PAR score is less than 8 or not return to pre-procedure baseline then patient will follow Phase I monitoring till PAR is reached for Phase II. The Phase I may be done in procedure room or may call to secure a Phase I area. * If naloxone or flumazenil are used for reversal, hold in Phase I for continued monitoring from when last reversal dose was given for a minimum of 60 minutes or longer pending the nurse and/or physician discretion of patient condition before discharge to Phase II. Please call the Sedation Physician to re-evaluate and complete post-note for discharge to Phase II area. Do NOT discharge from procedure sedation or Phase 1 until post- sedation evaluation note is complete by procedure /sedation MD Sedation Discharge Instructions to be given to the patient at discharge to home.
--- NOTE | 2020-09-18 16:18 | Discharge Summary ---
Date of Service September 18, 2020 Admission HPI Per Admitting Provider This is an 79-year-old Yaz[employer] male who denies past medical history and complaints today of intermittent palpitations. Patient is friendly but a limited historian. Patient states he has been having some chest pain with palpitations intermittently over the past 5 weeks. He does tend to be worse with activity. There is some accompanying mild shortness of breath. He notices that his tolerance for exercise is much decreased and has a worsening dyspnea on exertion. He went to see his primary care physician today and was told that his heart rate was very high and that he should present to the emergency room for further evaluation. In the ER, he was found to have a rate in the 150s, determined to be SVT. He was given adenosine which successfully broke the rhythm. At the time my evaluation, he is in normal sinus rhythm with a rate around 100. He is asymptomatic. He was started on a Cardizem drip by the ER physician. Patient is now being admitted for further evaluation. Principal Diagnosis NSTEMI, SVT, severe coronary disease (left main and left circumflex) Discharge Exam Constitutional WD/WN, vitals as above no acute distress Neck trachea midline, no thyromegaly Respiratory normal respiratory effort, lungs clear to auscultation Cardiovascular RRR, no murmur, no edema Gastrointestinal (Abdomen) normal bowel sounds, soft, nontender, no hepatosplenomegaly Musculoskeletal no cyanosis or clubbing, extremities motor strength 5/5 Skin no rashes, warm and dry Neurologic patellar DTR's 2+ bilat, sensation intact and PERRL, EOMI, accommodation nl, no face palsy, no dysarthria Psychiatric A+Ox3, euthymic affect Lymphatic no cervical or axillary lymphadenopathy Discharge Data Allergies Allergy/AdvReac Type Severity Reaction Status Date / Time No Known Drug Allergies Allergy nkda Unverified 09/17/20 14:42 Consultations 09/17/20 14:49 ED Decision to Admit Stat 09/17/20 18:31 Consult Cardiology Routine Procedures Performed Operation Date: 09/18/20 15:00 Actual Procedures p Cath, Coronaries ONLY (no LV) - Curt Power MD s Cineradiography w/Routine Exam - Curt Power MD Ordered Studies 09/18/20 13:00 CL Cath Imgs for PACS use only Routine Hospital Course (1) 2-vessel coronary artery disease: went for heart cath after found to 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% and troponin bumped to 5 LH shows severe left main and left circumflex disease (2) SVT (supraventricular tachycardia): back to sinus then went into atrial flutter rates controlled on diltiazem drip and Metoprolol 25mg BID (3) Troponin level elevated: see NSTEMI (4) Apical mural thrombus: on heparin drip (5) Acute systolic (congestive) heart failure: responded well to Lasix 40mg IV, put out 2.5 liters continue Lasix 40mg IV daily 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% (6) Cardiomyopathy: ischemic [employer]INTENA[employer], EF is reduced metoprolol 25mg, Lasix for volume control (7) Non-ST elevation (NSTEMI) myocardial infarction: (8) Atrial flutter: continue diltiazem drip and metoprolol likely triggered by ischemia (9) Hypertension: Total Time Total Time Spent Total Time Spent (In Minutes): 35 minutes Total Time Includes: Examination of the Patient, Discharge Planning, Medication Reconciliation and Communication With Other Providers Discharge Plan Discharge Items Reason For Visit: SVT Follow-up/Referrals: Ramy Dolan PA-C [Primary Care Provider] - Addtl Attending Provider Instructions: ACTIVITY RECOMMENDATIONS: Excess manipulation of the wrist should be avoided for the next 24-48 hours. * No lifting over 2 pounds (approximately a 1/2 gallon of milk) with the utilized arm for 24 hours. * No strenuous activity such as bowling or tennis for 3 days. * Keep the site of the procedure covered with a bandage for 24 hours. *You may shower the day after the procedure. Do not take a tub bath or submerge the puncture site in water for the next 3 days. *Do not operate any motorized equipment for 3 days. SPECIAL CARE INSTRUCTIONS: The site may be slightly bruised and sore following your procedure. Should any of the following occur, contact the Dr. who performed your procedure. 1. Redness/inflammation, swelling, chills, or fever, or colored drainage at procedure site within 3-7 days after your procedure. 2. Coldness, discoloration, ongoing numbness, severe pain, or swelling. Expect mild tingling of hand and tenderness at the puncture site for up to three days. If this persists beyond three days, or other symptoms develop, notify the Dr. who performed your procedure. BLEEDING: If the procedure site on your wrist begins to bleed, do not panic 1. Place 1 or 2 fingers firmly just slightly above the insertion site to stop the bleeding. You may be able to feel your pulse as you hold pressure. 2. Lift your finger after 5 minutes to see if the bleeding has stopped. 3. Once the bleeding has stopped, gently wipe the wrist area clean with a bandage. * If the bleeding from your wrist does not stop after 10 minutes, or if there is a large amount of bleeding or spurting, call 911 (do not drive yourself to the hospital). SKIN IRRITATION: * You may experience some redness and/or swelling in the area where radiation was administered. If any skin irritation occurs, please contact your family physician. FOLLOW UP VISIT: Keep any scheduled doctor appointments. Medications and DC Order Prescriptions: No Action No Known Home Medications RF: 0 Admission Data Admit Date/Time: 09/17/20 16:07 Attending Provider: Kun Flores Admit Provider: Constantine Mcwilliams Primary Care Provider: Ramy Dolan Other Providers: Constantine Mcwilliams ; Curt Power Coding Level of Care Code D/C Day Management >30 mins Diagnoses 2-vessel coronary artery disease I25.10 SVT (supraventricular tachycardia) I47.1 Troponin level elevated R77.8 Apical mural thrombus I51.3 Acute systolic (congestive) heart failure I50.21 Cardiomyopathy I42.9 Non-ST elevation (NSTEMI) myocardial infarction I21.4 Atrial flutter I48.92 Hypertension I10
[2020-09-18] MEDS ORDERED: ATORVASTATIN 40 MG TAB PO SCH (21:00)
[2020-09-18] MEDS ORDERED: METOPROLOL TARTRATE 25 MG TAB PO SCH (21:00)
--- NOTE | 2020-09-19 06:08 | Electrocardiogram Report ---
Test Reason : Blood Pressure : / mmHG Vent. Rate : 152 BPM Atrial Rate : 071 BPM P-R Int : 000 ms QRS Dur : 100 ms QT Int : 322 ms P-R-T Axes : 000 -34 097 degrees QTc Int : 511 ms Supraventricular tachycardia vs Atrial flutter Left axis deviation Nonspecific T wave abnormality Abnormal ECG No previous ECGs available Confirmed by Curt Power ([id number]) on 09/19/2020 6:08:14 AM Referred By: Ramy Dolan Confirmed By:Curt Power
--- NOTE | 2020-09-19 06:33 | Electrocardiogram Report ---
Test Reason : Blood Pressure : / mmHG Vent. Rate : 078 BPM Atrial Rate : 277 BPM P-R Int : 000 ms QRS Dur : 096 ms QT Int : 414 ms P-R-T Axes : -67 -26 155 degrees QTc Int : 471 ms Atrial flutter / fibrillation Anterior infarct , age undetermined Abnormal ECG When compared with ECG of 17-SEP-2020 12:56, Vent. rate has decreased BY 74 BPM T wave inversion now evident in Anterolateral leads Confirmed by Curt Power ([id number]) on 09/19/2020 6:33:00 AM Referred By: Ramy Dolan Confirmed By:Curt Power
--- NOTE | 2020-09-19 06:41 | Electrocardiogram Report ---
Test Reason : Blood Pressure : / mmHG Vent. Rate : 086 BPM Atrial Rate : 278 BPM P-R Int : 000 ms QRS Dur : 086 ms QT Int : 384 ms P-R-T Axes : -79 -12 093 degrees QTc Int : 459 ms Atrial flutter with variable A-V block Anterior infarct (cited on or before 17-SEP-2020) Abnormal ECG When compared with ECG of 17-SEP-2020 20:51, T wave inversion less evident in Anterior leads Confirmed by Curt Power ([id number]) on 09/19/2020 6:41:41 AM Referred By: Ramy Dolan Confirmed By:Curt Power
--- NOTE | 2020-09-19 06:54 | Electrocardiogram Report ---
Test Reason : Blood Pressure : / mmHG Vent. Rate : 079 BPM Atrial Rate : 278 BPM P-R Int : 000 ms QRS Dur : 102 ms QT Int : 422 ms P-R-T Axes : -60 -14 143 degrees QTc Int : 483 ms Atrial flutter with variable A-V block Possible Anterior infarct (cited on or before 17-SEP-2020) Abnormal ECG When compared with ECG of 18-SEP-2020 01:08, No significant change was found Confirmed by Curt Power ([id number]) on 09/19/2020 6:53:48 AM Referred By: Ramy Dolan Confirmed By:Curt Power
--- NOTE | 2020-09-20 07:04 | Electrocardiogram Report ---
Test Reason : Blood Pressure : / mmHG Vent. Rate : 075 BPM Atrial Rate : 278 BPM P-R Int : 000 ms QRS Dur : 088 ms QT Int : 440 ms P-R-T Axes : -63 -23 173 degrees QTc Int : 491 ms Atrial flutter with variable A-V block with premature ventricular or aberrantly conducted complexes Anterior infarct (cited on or before 17-SEP-2020) Abnormal ECG When compared with ECG of 17-SEP-2020 19:52, No significant change was found Confirmed by Curt Power ([id number]) on 09/20/2020 7:04:12 AM Referred By: Raym Dolan Confirmed By:Curt Power
== END 2020-09-18 20:35 | disposition short-term general hospital (02) | DRG 280 ==
LOC: ED 12:32 → 2S 16:07 → SUATTDRO 16:07 → 2S 17:37
PROC: CLB.CCO (2020-09-18 15:00)